=== PATIENT | female | born 1940 | race Caucasian/White ===

== ENCOUNTER → 2023-06-10 08:38 | Outpatient (REF) | payer OTHER, SELFPAY ==
[2023-06-10 09:51] LABS: % Basophils 1.4 % (0-2); % Eosinophils 6.1 % (0-6); % Immature Granulocytes 0.2 % (0-0.5); % Lymphocytes 27.1 % (20.5-51.1); % Monocytes 10.5 % (1.7-9.3); % Neutrophils 54.7 % (42.2-75.2); Absolute Basophils 0.1 10^3/uL (0-0.2); Absolute Eosinophils 0.3 10^3/uL (0-0.7); Absolute Lymphocytes 1.5 10^3/uL (1.2-3.4); Absolute Monocytes 0.6 10^3/uL (0.1-0.6); Absolute Neutrophils 3.1 10^3/uL (1.4-6.5); Hematocrit 34.5 % (37.0-47.0); Hemoglobin 11.2 g/dL (12.0-16.0); Mean Corp Hgb Conc. 32.5 g/dL (33.0-37.0); Mean Corpuscular Hgb 29.8 pg (27.0-31.0); Mean Corpuscular Volume 91.8 fL (81.0-99.0); Mean Platelet Volume 10.2 fL (7.4-10.4); Nucleated Red Blood Cells % 0 %; Platelet Count 334 10^3/uL (130-400); Red Blood Cell Count 3.76 10^6/uL (4.20-5.40); Red Cell Dist. Width 14.7 % (11.5-14.5); White Blood Cell Count 5.6 10^3/uL (4.8-10.8)
[2023-06-10 10:20] LABS: Urine Albumin Negative (Neg - Trace); Urine Bilirubin Negative (Negative); Urine Character Clear (Clear); Urine Color Yellow; Urine Glucose Negative (Negative); Urine Ketone Negative (Negative); Urine Leukocyte Negative (Negative); Urine Nitrite Negative (Negative); Urine Occult Blood Negative (Negative); Urine Specific Gravity 1.015 (<1.030); Urine Urobilinogen Negative (Neg - 1+)
[2023-06-10 11:34] LABS: ALT (SGPT) 15 U/L (0-35); AST (SGOT) 30 U/L (14-36); Albumin 4.4 g/dl (3.5-5.0); Alkaline Phosphatase 71 U/L (38-126); Blood Urea Nitrogen 25 mg/dl (7-17); Calcium 10.1 mg/dl (8.4-10.2); Carbon Dioxide 26 mmol/L (22-30); Chloride 105 mmol/L (98-107); Glucose 101 mg/dl (70-99); HDL Cholesterol 82 mg/dl; LDL Cholesterol, Calculated 70 mg/dl; Potassium 5.1 mmol/L (3.5-5.1); Sodium 140 mmol/L (135-145); Total Bilirubin 0.6 mg/dl (0.2-1.3); Total Cholesterol 171 mg/dl (50-199); Total Protein 6.8 g/dl (6.3-8.2); Triglyceride 96 mg/dl (10-149); Very Low Density Lipoprotein 19 mg/dl (0-30); eGFR 45.48
[2023-06-10 12:06] LABS: Glycohemoglobin (HgbA1c) 6.3 % (4.0-5.6)
[2023-06-11 16:05] LABS: Intact PTH 66.5 pg/ml (13.6-85.8)
== END ==
LOC: REG 08:38
PROVIDERS: ATTENDING PHYSICIAN Family Medicine
DX: N18.31 Chronic kidney disease, stage 3a (principal); E87.5 Hyperkalemia; K21.9 Gastro-esophageal reflux disease without esophagitis; D50.9 Iron deficiency anemia, unspecified; R73.03 Prediabetes
CPT/HCPCS: 36415; 80053; 80061; 81003; 83036; 83970; 85025

== ENCOUNTER → 2023-07-30 13:14 | Outpatient (REF) | payer OTHER, SELFPAY | LOC: WDC 13:14 | PROVIDERS: ATTENDING PHYSICIAN Family Medicine | DX: Z12.31 Encounter for screening mammogram for malignant neoplasm of breast (principal) | CPT/HCPCS: 77063; 77067 ==

== ENCOUNTER 2023-11-22 09:37 | Emergency (ER) | payer OTHER, SELFPAY ==
[2023-11-22 09:56] VITALS: BP 177/81
--- NOTE | 2023-11-22 11:21 | ED.GENMED ---
History of Present Illness
General
Chief Complaint: Abdominal Symptoms
Source: patient
Time Seen by Provider: 11/22/23 11:05
History of Present Illness
History of Present Illness:
83-year-old female presents to the emergency room complaining of constipation. Patient has not had a bowel movement for about 4 to 5 days. She feels bloated but denies any significant abdominal pain. She denies any nausea or vomiting. Patient
took tablets that she does not know the name of which did not cause her to have a bowel movement. She did not take any xwpq-[id number]-lbpsddc laxative such as MiraLAX. She did not take any enemas. No change in her prescription medications recently.
She does not take opiates. She has had a hysterectomy in the past.
Past History
Past History
ED Past Medical History: Arrthythmia (Atrial fib), Cancer (Breast), HTN and Hypercholesterolemia
ED Past Surgical History: Gynecological
Social History
Tobacco: Former smoker
Alcohol: Occasional
Personal:
Living: alone
Phy Exam
Physical Exam
Physical Exam:
General: Awake, Alert, Oriented X3. No acute distress.
Vitals: unremarkable
Head: Atraumatic
Eyes: Pupils equal, EOMI
Throat: Airway intact, no exudates
Neck: Trachea midline
Lungs: Clear and equal b/l
Heart: Regular rate, no murmurs
Abd: Soft, Nontender, No pulsatile mass
Rectal: Minimal stool in the rectal vault
Neuro: Nonfocal
Skin: Warm, dry, no rash
Extremities: pulses equal b/l, no edema
Course
Orders/Labs/Results
Orders:
Orders
11/22/23 11:20
Obstruct Series W/PA Chest [CR Obstruct Series W/pa Chest] Urgent
Comment:
Reason For Exam: abd pain, constipation
11/22/23 12:25
Lactulose [Duphalac/Chronulac] 20 grams PO NOW STA
Vital Signs
Initial and Last Documented VS:
Initial Vital Signs
Temp Pulse Resp BP Pulse Ox
97.8 F 64 18 177/81 98
11/22/23 09:56 11/22/23 09:56 11/22/23 09:56 11/22/23 09:56 11/22/23 09:56
Last Documented Vital Signs
Temp Pulse Resp BP Pulse Ox
97.8 F 64 18 177/81 98
11/22/23 09:56 11/22/23 09:56 11/22/23 09:56 11/22/23 09:56 11/22/23 09:56
MDM/Problems Addressed
Differential Diagnosis Includes:
Constipation, bowel obstruction
MDM/Problems Addressed:
Patient presents with constipation for 5 days. She denies any significant abdominal pain. No vomiting. Physical exam is benign. No evidence of obstruction on obstruction series. Does have moderate fecal burden. Will treat with lactulose for
constipation.
*Radiology
Radiology exam reviewed: radiology read reviewed
*Pulse Oximetry
Patient hypoxic: no
*Critical Care Note
Total Time (30-74mins, 75-104mins- exclusive of procedures): Not Applicable
ED Attending Note
-
Portions of this chart may have been created with voice recognition software.� Occasional wrong word or��sound alike� substitutions may have occurred due to the inherent limitations of voice recognition software.
Discharge Plan
Departure
Patient Disposition: Home (Routine Discharge)
Date of Disposition: 11/22/23
Time of Disposition: 12:26
Patient with high blood pressure during this ER visit?: Yes
Condition: Good
Discharge Problem:
Constipation
Instructions: Constipation, Adult (DC), BLOOD PRESSURE
Prescriptions:
New
lactulose 10 gram/15 mL solution
20 g PO BID PRN (Reason: Constipation) Qty: 473 0RF
No Action
metoprolol succinate 25 MG tablet extended release 24 hr
25 mg PO DAILY Qty: 20 1RF
atorvastatin 40 mg tablet
40 mg PO DAILY
aspirin 81 mg tablet,delayed release (DR/EC)
81 mg PO DAILY
pantoprazole 40 mg tablet,delayed release (DR/EC)
40 mg PO DAILY
Myrbetriq 50 mg tablet extended release 24 hr
50 mg PO DAILY
Eliquis 5 mg tablet
5 mg PO BID
calcium carbonate 500 mg calcium (1,250 mg) Tablet
500 mg PO DAILY
ferrous sulfate 325 mg (65 mg iron) Tablet
325 mg PO DAILY
docusate sodium [Stool Softener] 100 mg Capsule
100 mg PO DAILY
cholecalciferol (vitamin D3) [Vitamin D3] 25 mcg (1,000 unit) Tablet
25 mcg PO DAILY
Activity Restrictions/Additional Instructions:
You are suffering from constipation. I have sent a prescription for a laxative that will make you go. You can take it twice a day until you have adequate bowel movements then stop taking the medication.
Interventions
Interventions:
*Risk Screen - Suicide Last Done: 11/22/23 09:56
*General Assessment Last Done: 11/22/23 09:56
*Neglect/Abuse Screening Last Done: 11/22/23 09:56
ED- Fall Risk Assessment Last Done: 11/22/23 12:58
*ED COVID-19 Vaccine History Last Done: 11/22/23 09:56
*Nursing Disposition Last Done: 11/22/23 12:58
KU-Mrqyrn-Fpuavepupr Assessment Last Done: 11/22/23 11:30
Discharge Date and Time
Discharge Date/Time: 11/22/23 13:51
Print Language: FIJIAN
[2023-11-22] MEDS: DUPHALAC/CHRONULAC 20 GRAMS PO (12:43)
== END 2023-11-22 13:51 | disposition home or self-care (01) ==
LOC: EMR 09:37
PROVIDERS: EMERGENCY PHYSICIAN Emergency Medicine
DX: K59.00 Constipation, unspecified (principal); I10 Essential (primary) hypertension; Z87.891 Personal history of nicotine dependence
CPT/HCPCS: 99283; 74022

== ENCOUNTER → 2024-02-18 11:51 | Outpatient (REF) | payer OTHER, SELFPAY ==
[2024-02-18 13:18] LABS: % Basophils 0.7 % (0-2); % Eosinophils 3.4 % (0-6); % Immature Granulocytes 0.3 % (0-0.5); % Lymphocytes 20.1 % (20.5-51.1); % Neutrophils 68.5 % (42.2-75.2); Absolute Basophils 0.1 10^3/uL (0-0.2); Absolute Eosinophils 0.3 10^3/uL (0-0.7); Absolute Lymphocytes 1.5 10^3/uL (1.2-3.4); Absolute Monocytes 0.5 10^3/uL (0.1-0.6); Absolute Neutrophils 5.3 10^3/uL (1.4-6.5); Hematocrit 35.3 % (37.0-47.0); Hemoglobin 11.2 g/dL (12.0-16.0); Mean Corp Hgb Conc. 31.7 g/dL (33.0-37.0); Mean Corpuscular Hgb 30.3 pg (27.0-31.0); Mean Corpuscular Volume 95.4 fL (81.0-99.0); Mean Platelet Volume 10.4 fL (7.4-10.4); Nucleated Red Blood Cells % 0 %; Platelet Count 394 10^3/uL (130-400); Red Cell Dist. Width 13.5 % (11.5-14.5); White Blood Cell Count 7.7 10^3/uL (4.8-10.8)
[2024-02-18 13:45] LABS: ALT (SGPT) 13 U/L (0-35); AST (SGOT) 25 U/L (14-36); Albumin 4.4 g/dl (3.5-5.0); Alkaline Phosphatase 84 U/L (38-126); Blood Urea Nitrogen 20 mg/dl (7-17); Calcium 9.7 mg/dl (8.4-10.2); Carbon Dioxide 27 mmol/L (22-30); Chloride 102 mmol/L (98-107); Glucose 101 mg/dl (70-99); Potassium 5.4 mmol/L (3.5-5.1); Sodium 139 mmol/L (135-145); Total Bilirubin 0.3 mg/dl (0.2-1.3); Total Protein 6.8 g/dl (6.3-8.2); eGFR 56.25
== END ==
LOC: REG 11:51
PROVIDERS: ATTENDING PHYSICIAN Family Medicine
DX: Z01.818 Encounter for other preprocedural examination (principal)
CPT/HCPCS: 36415; 80053; 85025

== ENCOUNTER → 2024-03-13 15:00 | Outpatient (REF) | payer OTHER, SELFPAY | LOC: CLAB 15:00 | PROVIDERS: ATTENDING PHYSICIAN Podiatrist Foot Surgery | DX: G57.61 Lesion of plantar nerve, right lower limb (principal) | CPT/HCPCS: 88304 ==

== ENCOUNTER → 2024-04-20 09:43 | Outpatient (REF) | payer OTHER, SELFPAY | LOC: RAD 09:43 | PROVIDERS: ATTENDING PHYSICIAN Internal Medicine; FAMILY PHYSICIAN Family Medicine | DX: M81.0 Age-related osteoporosis without current pathological fracture (principal) | CPT/HCPCS: 77080 ==

== ENCOUNTER → 2024-07-25 07:32 | Outpatient (REF) | payer OTHER, SELFPAY ==
[2024-07-25 09:18] LABS: ALT (SGPT) 17 U/L (0-35); AST (SGOT) 26 U/L (14-36); Albumin 4.2 g/dl (3.5-5.0); Alkaline Phosphatase 63 U/L (38-126); Blood Urea Nitrogen 19 mg/dl (7-17); Calcium 9.6 mg/dl (8.4-10.2); Carbon Dioxide 28 mmol/L (22-30); Chloride 112 mmol/L (98-107); Glucose 105 mg/dl (70-99); Potassium 4.7 mmol/L (3.5-5.1); Sodium 145 mmol/L (135-145); Total Bilirubin 0.4 mg/dl (0.2-1.3); Total Protein 6.6 g/dl (6.3-8.2)
[2024-07-25 09:25] LABS: Vitamin D, 25-OH*** 40.9 ng/mL (30-80)
[2024-07-26 10:37] LABS: Intact PTH 99.8 pg/ml (13.6-85.8)
== END ==
LOC: REG 07:32
PROVIDERS: ATTENDING PHYSICIAN Internal Medicine; FAMILY PHYSICIAN Family Medicine
DX: M81.0 Age-related osteoporosis without current pathological fracture (principal)
CPT/HCPCS: 36415; 80053; 82306; 83970

== ENCOUNTER → 2024-08-02 11:41 | Outpatient (REF) | payer OTHER, SELFPAY | LOC: WDC 11:41 | PROVIDERS: ATTENDING PHYSICIAN Family Medicine | DX: Z12.31 Encounter for screening mammogram for malignant neoplasm of breast (principal) | CPT/HCPCS: 77063; 77067 ==